=== PATIENT | male | born 1940 | race Caucasian/White ===

== ENCOUNTER 2022-06-06 13:05 | Inpatient (IN) | payer MEDICARE, OTHER ==
[~2022-06-06] VITALS: Ht 160 cm; Wt 73.0 kg
--- NOTE | 2022-06-06 13:25 | NUR ---
Nursing SBAR given to motor equipment sergeant Devika. student development coordinator is at bedside as 1:1 sitter.
[2022-06-06 13:33] LABS: HEMATOCRIT 39.3 % (36.7-47.1); MEAN CORPUSCULAR HEMOGLOBIN 29.8 uug (23.8-33.4); MEAN CORPUSCULAR VOLUME 89.5 fL (73.0-96.2); PLATELET COUNT (AUTO) 256 K/uL (152-348)
[2022-06-06 13:42] LABS: ALANINE AMINOTRANSFERASE 17 U/L (16-63); ALKALINE PHOSPHATASE 51 U/L (50-136); ASPARTATE AMINOTRANSFERASE 8 U/L (15-37); BILIRUBIN,DIRECT 0.2 mg/dL (0.0-0.2); BILIRUBIN,TOTAL 0.4 mg/dL (0.2-1.0); CARBON DIOXIDE 21 mmol/L (21-32); CHLORIDE 108 mmol/L (98-107); GLUCOSE 98 mg/dL (74-106); POTASSIUM 3.6 mmol/L (3.5-5.1); TOTAL PROTEIN, SERUM 7.6 g/dL (6.4-8.2); UREA NITROGEN, BLOOD 20 mg/dL (7-18)
[2022-06-06 13:43] LABS: ACETAMINOPHEN < 2.0 ug/mL (10-30)
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
[2022-06-06] MEDS ORDERED: HYDR-501 PO (13:46)
[2022-06-06] MEDS ORDERED: OMEP40CA21 PO (13:46)
[2022-06-06] MEDS ORDERED: LACT10SO7 PO (13:46)
[2022-06-06] MEDS ORDERED: BISM-146 PO (13:48)
[2022-06-06] MEDS ORDERED: ACET-2154 PO (13:48)
[2022-06-06] MEDS ORDERED: ACET500C4 PO (13:48)
[2022-06-06] MEDS ORDERED: CHOL50006 PO (13:50)
[2022-06-06] MEDS ORDERED: ASCO500C18 PO (13:50)
[2022-06-06] MEDS ORDERED: THIA100T13 PO (13:50)
[2022-06-06] MEDS ORDERED: TAMS-3 PO (13:51)
[2022-06-06] MEDS ORDERED: AMLO10TA4 PO (13:51)
[2022-06-06] MEDS ORDERED: MULT1CAP34 PO (13:51)
[2022-06-06] MEDS ORDERED: ATOR10TA PO (13:53)
[2022-06-06] MEDS ORDERED: LORA-114 PO (13:53)
[2022-06-06] MEDS ORDERED: DEXT15DR23 TOP (13:53)
[2022-06-06] MEDS ORDERED: MAG-55 PO (13:57)
[2022-06-06] MEDS ORDERED: DIVA125T2 PO (13:57)
[2022-06-06] MEDS ORDERED: DIVA250T4 PO (13:57)
[2022-06-06] MEDS ORDERED: SIME125C81 PO (13:57)
[2022-06-06] MEDS ORDERED: BISA10SU61 RC (14:01)
[2022-06-06] MEDS ORDERED: MAGN400O6 PO (14:01)
[2022-06-06] MEDS ORDERED: NA P133E (14:01)
[2022-06-06 14:38] LABS: ETHANOL < 3 MG/DL (0-0)
--- NOTE | 2022-06-06 15:00 | NUR ---
REMAINS 1:1 WITH SITTER AND NO DISTRESS NOTED.
--- NOTE | 2022-06-06 16:45 | NUR ---
UNABLE TO PROVIDE URINE FOR LAB SPECIMEN,STRAIGHT CATH USING 14 FR CATH, 100 ML CLEAR YELLOW URINE AND NO RESISTANCE MET.LANCE PROCEDURE WELL.
--- NOTE | 2022-06-06 17:00 | NUR ---
VSS,NO DISTRESS NOTED.
--- NOTE | 2022-06-06 18:38 | NUR ---
APPETITE POOR ATE ONLY 20% OF DINNER AND SLEEPING, RESP EVEN AND UNLABOR. REPORTS DIARRHEA BUT HAS NOT VOIDED OR HAVE BM SINCE ARRIVAL TO ED.
--- NOTE | 2022-06-06 18:43 | NUR ---
CRSIS PODIATRIC SURGEON OLIVIA IN TO EVAL PATIENT AT 1824 AND PATIENT WILL BE PLACED ON 5150 FOR THIS ADMISSION.
[2022-06-06] MEDS: AMLODIPINE 10 MG TABLET PO SCH (18:45)
--- NOTE | 2022-06-06 20:48 | NUR ---
ASSUMED CARE, PT found resting in bed, alert and oriented, able to answer questions appropriately. per report pt was sent from his SNF for increasing aggitation and visual hallucanations. pt is stating he see blood, when no blood is present. also noted to occsaionaly try to strike staff or other pts. since assuming care pts mentation has been calm and coopreative. room assigned, report given. pt transported in stable condition with all paperwork and belongings, to include original hold. pt updated as to plan of care, understanding verbalised. NAD noted
[2022-06-06] MEDS ORDERED: LORAZEPAM 1 MG TABLET PO PRN (21:15)
[2022-06-06] MEDS ORDERED: MAGNESIUM HYDROXIDE 30 ML LIQUID UDC PO PRN (21:15)
[2022-06-06] MEDS ORDERED: MAG HYDROX/AL HYDROX/SIMETH 30 ML LIQUID UDC PO PRN (21:15)
[2022-06-06] MEDS: ATORVASTATIN 10 MG TABLET PO SCH (21:56)
[2022-06-06] MEDS: ZOLPIDEM 5 MG TABLET PO PRN (21:56)
[2022-06-06] MEDS ORDERED: Medication Not On Formulary EA (Simethicone 125 MG) PO SCH (22:00)
--- NOTE | 2022-06-06 22:00 | NUR ---
GPS ADMISSION NOTES: Admitted 82 y/o male patient, under the care of Dr. Fowler and Dr. Dillard, status: full code. Patient inpatient to MHU d/t progressive decline, worsening agitation, aggressive behavior, and being very difficult to redirect so was placed on 72H hold by the crisis team. Patient was brought in via gurney by ER nurse, patient appears to be well nourished. Upon face to face evaluation, patient is A&Ox2, poorly dressed, patient is Qatari speaking and only understands minimal Korean so needs lending manager to converse. Initial vital signs taken and w/in normal. No distress noted. Patient is cooperative with interview process with pleasant behavior, however refused to sign needed admission paper. Patient was asked as the reason to be here, patient states in Qatari and translated by one of the staff as "I am here to get surgery because I am pooping blood". Patient is ambulatory with the aid of walker, but he states he comes with a wheelchair. Patient oriented to the unit, and verbalized understanding. Patient requested shower and was provided to patient. Patient skin appears intact. Patient rights explained to patient, patient rights handbook and advisement given at bedside. Patient given Prn ambien. He is assisted to his room, safety measures in place.
[2022-06-06] MEDS: SIMETHICONE 80 MG TAB.CHEW PO SCH (22:33)
[2022-06-06 22:45] VITALS: BP 135/61
[2022-06-07] MEDS: SIMETHICONE 80 MG TAB.CHEW PO SCH ×3 (06:09→21:29)
[2022-06-07] MEDS: PANTOPRAZOLE SODIUM 40 MG TABLET.DR PO SCH (06:12)
[2022-06-07] MEDS ORDERED: Medication Not On Formulary EA (Omeprazole 40 MG) PO SCH (09:00)
[2022-06-07] MEDS ORDERED: CHOLECALCIFEROL PO SCH (09:00)
[2022-06-07] MEDS ORDERED: [UNRECOGNIZED DRUG - OTHER] PO SCH (09:00)
[2022-06-07] MEDS ORDERED: Medication Not On Formulary EA (Ascorbic Acid (Vitamin C) 500 MG) PO SCH (09:00)
[2022-06-07] MEDS ORDERED: MULTIVITAMINS PO SCH (09:00)
[2022-06-07] MEDS: CHOLECALCIFEROL 1,000 UNIT TABLET PO SCH (09:44)
[2022-06-07] MEDS: LACTULOSE 20 G/30 ML LIQUID UDC PO SCH ×3 (09:44→17:00)
[2022-06-07] MEDS: THIAMINE HCL 100 MG TABLET PO SCH (09:44)
[2022-06-07] MEDS: ASCORBIC ACID 500 MG TABLET PO SCH (09:44)
[2022-06-07] MEDS: MULTIVITAMINS,THERAPEUTIC TABLET PO SCH (09:44)
[2022-06-07] MEDS: LORATADINE 10 MG TABLET PO SCH (09:44)
[2022-06-07] MEDS: AMLODIPINE 10 MG TABLET PO SCH (09:45)
[2022-06-07] MEDS: TAMSULOSIN HCL 0.4 MG CAP.SR.24H PO SCH (09:45)
[2022-06-07 16:09] VITALS: BP 112/60
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
[2022-06-07 19:41] VITALS: BP 115/62
[2022-06-07] MEDS: ATORVASTATIN 10 MG TABLET PO SCH (20:28)
--- NOTE | 2022-06-07 20:30 | NUR ---
RECEIVED PATIENT IN HIS ROOM IN BED. HE IS NOTED AWAKE A/O X 2. IN NO DISTRESS. HE IS ABLE TO VERBALIZED HIS FEELINGS. PATIENT IS NOTED WITH POOR INSIGHT AND JUDGMENT INTO HIS ADMISSION TO MHU. HE STATED, "I AM HERE BECAUSE THAT LADY DOES NOT LIKE ME. I THOUGH I WAS GONG TO SEE THE DOCTOR FOR MY ARM BUT SHE SENT ME TO THE [facility]. I DON'T KNOW WHY I AM HERE". PATIENT WAS REASSURED AND REDIRECTED. IT WAS ALSO OBSERVED THAT PATIENT IS HYPERRELIGIOUS. HE STATED, "THE SON OF GOD IS COMING SOON. DO YOU BELIEVED IN GOD? THE JUAN OF GOD IS WITH US". HIS V/S ARE STABLE. HE WAS GIVEN PO FLUIDS AND SNACKS. SAFETY AND FALL PRECAUTIONS ARE IN PLACE. PATIENT IS REASSURE FOR HIS SAFETY. WILL CONTINUE TO MONITOR.
[2022-06-07] MEDS: ACETAMINOPHEN 325 MG TABLET PO PRN (20:50)
[2022-06-07] MEDS: ZOLPIDEM 5 MG TABLET PO PRN (23:07)
[2022-06-08] MEDS: SIMETHICONE 80 MG TAB.CHEW PO SCH ×3 (06:30→21:06)
[2022-06-08] MEDS: PANTOPRAZOLE SODIUM 40 MG TABLET.DR PO SCH (06:30)
[2022-06-08 07:26] LABS: CARBON DIOXIDE 24 mmol/L (21-32); CHLORIDE 108 mmol/L (98-107); CREATININE 1.8 mg/dL (0.6-1.3); GLUCOSE 101 mg/dL (74-106); POTASSIUM 3.7 mmol/L (3.5-5.1); UREA NITROGEN, BLOOD 24 mg/dL (7-18)
[2022-06-08 07:58] VITALS: BP 120/56
[2022-06-08] MEDS: CHOLECALCIFEROL 1,000 UNIT TABLET PO SCH (08:39)
[2022-06-08] MEDS: LACTULOSE 20 G/30 ML LIQUID UDC PO SCH ×3 (08:39→16:46)
[2022-06-08] MEDS: TAMSULOSIN HCL 0.4 MG CAP.SR.24H PO SCH (08:39)
[2022-06-08] MEDS: THIAMINE HCL 100 MG TABLET PO SCH (08:39)
[2022-06-08] MEDS: ASCORBIC ACID 500 MG TABLET PO SCH (08:39)
[2022-06-08] MEDS: AMLODIPINE 10 MG TABLET PO SCH (08:45)
[2022-06-08] MEDS: MULTIVITAMINS,THERAPEUTIC TABLET PO SCH (08:45)
[2022-06-08] MEDS: LORATADINE 10 MG TABLET PO SCH (08:45)
--- NOTE | 2022-06-08 15:58 | NUR ---
GPS: Nursing Notes: Destructive Behavior To Others: Patient is awake and responding to his name, isolative in his room, refusing to participate in therapeutic groups, gets easily irritable when redirected, believes that he is here because the staff at the SNF was against him, stated "She never like me.. She is constantly getting me agitated..", forgetful at times, redirected during shift, unable to formulate a viable plan for self care, continue to monitor for safety, continue with treatment plan.
[2022-06-08 16:05] VITALS: BP 120/58
[2022-06-08 19:47] VITALS: BP 118/56
[2022-06-08] MEDS: risperiDONE 1 MG TABLET PO SCH (20:51)
[2022-06-08] MEDS: ATORVASTATIN 10 MG TABLET PO SCH (20:51)
[2022-06-08] MEDS: ACETAMINOPHEN 325 MG TABLET PO PRN (20:58)
[2022-06-08] MEDS ORDERED: risperiDONE 1 MG TABLET PO SCH (21:00)
[2022-06-08] MEDS ORDERED: IV NS 1000 ML 1,000 ML IV ONE (22:00)
--- NOTE | 2022-06-08 23:00 | NUR ---
NEW ORDER PER DR. ROSARIO TO ADMINISTER 1000ML NS IV FLUIDS AT 125ML/HR ONE TIME ONLY D/T CREATININE 1.8 PATIENT NOTED SLEEPING, ATTEMPTED TO INFORMED THE PATIENT OF THE NEW ORDER AND INSERTION OF IV CATHETER; HOWEVER, HE STARED, "NO, NO, I AM SLEEPING, NO, I DON'T WANT IT, LATER, LATER". WILL ATTEMPT AGAIN WHEN PATIENT IS NOTED AWAKE AND ABLE TO COOPERATE. WILL CONTINUE TO MONITOR.
--- NOTE | 2022-06-09 02:10 | NUR ---
PERIPHERAL IV WAS INSERTED ON PATIENT'S RIGHT HAND WITH A 22G. 9% NORMAL SALINE IS INFUSING PER MD ORDERED, PATIENT TOLERATED WELL. WILL CONTINUE TO MONITOR.
[2022-06-09] MEDS: SIMETHICONE 80 MG TAB.CHEW PO SCH ×3 (06:25→21:11)
[2022-06-09] MEDS: PANTOPRAZOLE SODIUM 40 MG TABLET.DR PO SCH (06:25)
[2022-06-09 07:46] VITALS: BP 103/53
[2022-06-09] MEDS: LACTULOSE 20 G/30 ML LIQUID UDC PO SCH ×3 (08:38→17:00)
[2022-06-09] MEDS: risperiDONE 1 MG TABLET PO SCH ×2 (08:39→20:40)
[2022-06-09] MEDS: MULTIVITAMINS,THERAPEUTIC TABLET PO SCH (08:39)
[2022-06-09] MEDS: ASCORBIC ACID 500 MG TABLET PO SCH (08:39)
[2022-06-09] MEDS: TAMSULOSIN HCL 0.4 MG CAP.SR.24H PO SCH (08:39)
[2022-06-09] MEDS: LORATADINE 10 MG TABLET PO SCH (08:39)
[2022-06-09] MEDS: THIAMINE HCL 100 MG TABLET PO SCH (08:39)
[2022-06-09] MEDS: CHOLECALCIFEROL 1,000 UNIT TABLET PO SCH (08:39)
--- NOTE | 2022-06-09 15:32 | NUR ---
GPS: Nursing Notes: 5250 Hearing Request: Staff gave copy of 5250 to patient. Explained 5250 and informed patient that a certification review hearing will held within four days. Patient was inform that patient's right advocate will talk to her to provide assistance in preparing for the hearing or to answer questions or to provide other assistance. The court has been notified of this certification on this day via [facility] portal.
--- NOTE | 2022-06-09 15:56 | NUR ---
GPS: Nursing Notes: Destructive Behavior To Others: Patient is awake and responding to his name, disoriented, forgetful at times, gets easily irritable when redirected, gets angry when remember the staff at the SNF, stated, "She hates me... She is always against me... I am here because I was vomiting..", redirected and reoriented during shift, isolative and withdrawn in his room, labile, unpredictable behavior, poor anger management, unable to formulate a viable plan for self care, continue with treatment plan.
--- NOTE | 2022-06-09 16:12 | NUR ---
QI Initial Discharge Note: Pt currently resides at [facility] located at [address] [place] [address] ([phone]). Per Leah/IMANI, she would like the pt to return to the facility. QI will contact the SNF to ensure pt's safe return back. QI will continue to work with pt, family, and MD to ensure a safe and proper discharge plan.
[2022-06-09 16:42] VITALS: BP 134/62
[2022-06-09 20:05] VITALS: BP 126/70
[2022-06-09] MEDS: ATORVASTATIN 10 MG TABLET PO SCH (20:39)
--- NOTE | 2022-06-10 06:08 | NUR ---
Slept intermittently. Able to make needs known. Able to get up with assistance and with walker. Denies SI or HI. Pt is forgetful at times but able to be redirected. Safety maintained throughout the night, will endorse to day shift.
[2022-06-10] MEDS: SIMETHICONE 80 MG TAB.CHEW PO SCH ×3 (06:26→22:11)
[2022-06-10] MEDS: PANTOPRAZOLE SODIUM 40 MG TABLET.DR PO SCH (06:26)
[2022-06-10 07:30] VITALS: BP 139/64
[2022-06-10] MEDS: THIAMINE HCL 100 MG TABLET PO SCH (08:28)
[2022-06-10] MEDS: CHOLECALCIFEROL 1,000 UNIT TABLET PO SCH (08:29)
[2022-06-10] MEDS: LACTULOSE 20 G/30 ML LIQUID UDC PO SCH ×3 (08:30→17:26)
[2022-06-10] MEDS: MULTIVITAMINS,THERAPEUTIC TABLET PO SCH (08:30)
[2022-06-10] MEDS: risperiDONE 1 MG TABLET PO SCH ×2 (08:31→20:49)
[2022-06-10] MEDS: LORATADINE 10 MG TABLET PO SCH (08:31)
--- NOTE | 2022-06-10 09:00 | NUR ---
Received patient in her room in bed. he is noted awake A/O x 2. he is calm cooperative and pleasant upon approached. patient needs assistance with ADLs. he is able to make his needs known. He is reassured for his safety. safety and fall precaution are in place. will continue to monitor.
[2022-06-10] MEDS: ASCORBIC ACID 500 MG TABLET PO SCH (09:06)
[2022-06-10] MEDS: TAMSULOSIN HCL 0.4 MG CAP.SR.24H PO SCH (09:06)
--- NOTE | 2022-06-10 15:33 | NUR ---
Patient is isolative, withdrawn, quiet, cooperative with nursing care, depressed, compliant with medications. Emotional support provided. Fall and safety precautions implemented.
[2022-06-10 16:00] VITALS: BP 122/66
[2022-06-10 19:55] VITALS: BP 135/83
[2022-06-10] MEDS: ATORVASTATIN 10 MG TABLET PO SCH (20:49)
[2022-06-10] MEDS ORDERED: IV NS 1000 ML 1,000 ML IV ONE (22:45)
--- NOTE | 2022-06-10 23:11 | NUR ---
GPS NOTES: Received order from MD Freeman to give IV BOLUS to patient d/t increase creatinine. Patient however refused to have peripheral line inserted, patient states " No, No it's too much dolor, I want to sleep" Explained to patient as this was doctors order, patient states " I just had it two days ago, No no, too much dolor" Explained risks and benefits to patient x3, still refused.
[2022-06-11] MEDS: ACETAMINOPHEN 325 MG TABLET PO PRN ×2 (03:06→18:59)
[2022-06-11] MEDS: SIMETHICONE 80 MG TAB.CHEW PO SCH ×3 (05:54→21:48)
[2022-06-11] MEDS ORDERED: IV NS 1000 ML 1,000 ML IV ONE (06:00)
[2022-06-11] MEDS: PANTOPRAZOLE SODIUM 40 MG TABLET.DR PO SCH (06:09)
--- NOTE | 2022-06-11 06:42 | NUR ---
Patient agrees to have peripheral IV line inserted, successfully inserted in the Right AC area. Hang IV NS as per doctors order.
[2022-06-11 07:30] VITALS: BP 151/75
[2022-06-11] MEDS: risperiDONE 1 MG TABLET PO SCH (08:13)
[2022-06-11] MEDS: ASCORBIC ACID 500 MG TABLET PO SCH (08:13)
[2022-06-11] MEDS: MULTIVITAMINS,THERAPEUTIC TABLET PO SCH (08:13)
[2022-06-11] MEDS: CHOLECALCIFEROL 1,000 UNIT TABLET PO SCH (08:13)
[2022-06-11] MEDS: TAMSULOSIN HCL 0.4 MG CAP.SR.24H PO SCH (08:13)
[2022-06-11] MEDS: LORATADINE 10 MG TABLET PO SCH (08:13)
[2022-06-11] MEDS: LACTULOSE 20 G/30 ML LIQUID UDC PO SCH ×3 (08:13→17:31)
[2022-06-11] MEDS: THIAMINE HCL 100 MG TABLET PO SCH (08:14)
[2022-06-11] MEDS: ENSURE CLEAR 240 ML LIQUID (MIX BERRY) PO SCH (12:05)
[2022-06-11 16:00] VITALS: BP 159/76
[2022-06-11 20:12] VITALS: BP 144/74
[2022-06-11] MEDS: ATORVASTATIN 10 MG TABLET PO SCH (20:23)
[2022-06-11] MEDS ORDERED: risperiDONE 1 MG TABLET PO SCH (21:00)
[2022-06-12] MEDS: PANTOPRAZOLE SODIUM 40 MG TABLET.DR PO SCH (06:07)
[2022-06-12] MEDS: ACETAMINOPHEN 325 MG TABLET PO PRN (06:07)
[2022-06-12] MEDS: SIMETHICONE 80 MG TAB.CHEW PO SCH ×3 (06:07→21:15)
[2022-06-12 07:30] VITALS: BP 136/78
[2022-06-12] MEDS: MULTIVITAMINS,THERAPEUTIC TABLET PO SCH (08:46)
[2022-06-12] MEDS: ASCORBIC ACID 500 MG TABLET PO SCH (08:46)
[2022-06-12] MEDS: LACTULOSE 20 G/30 ML LIQUID UDC PO SCH ×3 (08:46→17:00)
[2022-06-12] MEDS: CHOLECALCIFEROL 1,000 UNIT TABLET PO SCH (08:46)
[2022-06-12] MEDS: LORATADINE 10 MG TABLET PO SCH (08:46)
[2022-06-12] MEDS: TAMSULOSIN HCL 0.4 MG CAP.SR.24H PO SCH (08:46)
[2022-06-12] MEDS: THIAMINE HCL 100 MG TABLET PO SCH (08:46)
[2022-06-12] MEDS: ENSURE CLEAR 240 ML LIQUID (MIX BERRY) PO SCH (08:47)
--- NOTE | 2022-06-12 13:55 | NUR ---
QI PC Hearing: Patient had 5250 probable cause hearing today and it was upheld for grave disability.
[2022-06-12 16:00] VITALS: BP 132/80
--- NOTE | 2022-06-12 17:02 | NUR ---
3rd call to doctor Davenport for pain medication. patient states that tylenol is not enough for pain. patient has been in bed all day and has been refusing PT or even repositioning in bed. Encouraged and informed patient of effect on skin and continues to refuse turning or repositioning.
[2022-06-12] MEDS: IBUPROFEN 600 MG TABLET PO PRN ×2 (18:14→20:27)
[2022-06-12] MEDS: ATORVASTATIN 10 MG TABLET PO SCH (20:12)
[2022-06-12 22:45] VITALS: BP 133/57
[2022-06-12 23:00] VITALS: BP 133/87
[2022-06-13] MEDS: ACETAMINOPHEN 325 MG TABLET PO PRN (00:04)
--- NOTE | 2022-06-13 04:52 | NUR ---
GPS NOTES: Patient continue to be c/o body pain phoebe. in the leg area. He refused to moved or do anything d/t pain. He was given motrin w/ effectivity. patient able to transfer self from bed to wheelchair and watched tv. Patient is med compliant. He was assisted back to his room. Tylenol given for pain. Needs met and attended. He is kept safe. Fall precaution observed.
[2022-06-13] MEDS: IBUPROFEN 600 MG TABLET PO PRN ×2 (06:01→21:05)
[2022-06-13] MEDS: SIMETHICONE 80 MG TAB.CHEW PO SCH ×3 (06:02→21:05)
[2022-06-13] MEDS: PANTOPRAZOLE SODIUM 40 MG TABLET.DR PO SCH (06:02)
[2022-06-13 07:30] VITALS: BP 108/62
[2022-06-13] MEDS: LACTULOSE 20 G/30 ML LIQUID UDC PO SCH ×4 (09:00→17:00)
--- NOTE | 2022-06-13 09:00 | NUR ---
Calm and compliant with taking of medication but refused Lactulose due to large loose BM yesterday. Able to eat independently. Stayed in bed.
[2022-06-13] MEDS: TAMSULOSIN HCL 0.4 MG CAP.SR.24H PO SCH (09:09)
[2022-06-13] MEDS: MULTIVITAMINS,THERAPEUTIC TABLET PO SCH (09:09)
[2022-06-13] MEDS: LORATADINE 10 MG TABLET PO SCH (09:09)
[2022-06-13] MEDS: THIAMINE HCL 100 MG TABLET PO SCH (09:09)
[2022-06-13] MEDS: CHOLECALCIFEROL 1,000 UNIT TABLET PO SCH (09:10)
[2022-06-13] MEDS: ENSURE CLEAR 240 ML LIQUID (MIX BERRY) PO SCH (09:10)
[2022-06-13] MEDS: ASCORBIC ACID 500 MG TABLET PO SCH (09:10)
--- NOTE | 2022-06-13 14:54 | NUR ---
Eating well. Denies pain but moaning when turned. Requested to be transferred to the wheelchair to go to activity room to watch TV.
[2022-06-13 16:00] VITALS: BP 114/58
--- NOTE | 2022-06-13 16:48 | NUR ---
DIANNA spoke with Dr. Fowler regarding psychotropic medication but no new orders received.
--- NOTE | 2022-06-13 18:13 | NUR ---
Stayed sitting on the wheelchair eatng in the dining area. Denies pain
[2022-06-13 20:00] VITALS: BP 119/64
[2022-06-13] MEDS: ATORVASTATIN 10 MG TABLET PO SCH (20:54)
[2022-06-14] MEDS: PANTOPRAZOLE SODIUM 40 MG TABLET.DR PO SCH (06:10)
[2022-06-14] MEDS: SIMETHICONE 80 MG TAB.CHEW PO SCH ×3 (06:10→21:09)
[2022-06-14 07:22] VITALS: BP 118/58
[2022-06-14] MEDS: ASCORBIC ACID 500 MG TABLET PO SCH (08:09)
[2022-06-14] MEDS: CHOLECALCIFEROL 1,000 UNIT TABLET PO SCH (08:09)
[2022-06-14] MEDS: ENSURE CLEAR 240 ML LIQUID (MIX BERRY) PO SCH (08:09)
[2022-06-14] MEDS: TAMSULOSIN HCL 0.4 MG CAP.SR.24H PO SCH (08:09)
[2022-06-14] MEDS: IBUPROFEN 600 MG TABLET PO PRN ×2 (08:09→20:12)
[2022-06-14] MEDS: MULTIVITAMINS,THERAPEUTIC TABLET PO SCH (08:10)
[2022-06-14] MEDS: THIAMINE HCL 100 MG TABLET PO SCH (08:10)
[2022-06-14] MEDS: LACTULOSE 20 G/30 ML LIQUID UDC PO SCH ×3 (08:10→17:17)
[2022-06-14] MEDS: LORATADINE 10 MG TABLET PO SCH (08:10)
[2022-06-14 16:17] VITALS: BP 115/69
[2022-06-14 19:45] VITALS: BP 126/60
[2022-06-14] MEDS: ATORVASTATIN 10 MG TABLET PO SCH (20:12)
--- NOTE | 2022-06-15 05:15 | NUR ---
GPS: Remains asleep at this time. Resp.even and unlabored. No aggressive behavior noted. Denies AH/VH when asked last night. Repositioned for comfort. Pain meds.administered prn with good results.
[2022-06-15] MEDS: PANTOPRAZOLE SODIUM 40 MG TABLET.DR PO SCH (06:20)
[2022-06-15] MEDS: SIMETHICONE 80 MG TAB.CHEW PO SCH ×3 (06:20→21:38)
[2022-06-15 07:54] VITALS: BP 124/54
[2022-06-15] MEDS: ENSURE CLEAR 240 ML LIQUID (MIX BERRY) PO SCH (08:00)
[2022-06-15] MEDS: LACTULOSE 20 G/30 ML LIQUID UDC PO SCH ×3 (09:22→17:00)
[2022-06-15] MEDS: THIAMINE HCL 100 MG TABLET PO SCH (09:23)
[2022-06-15] MEDS: TAMSULOSIN HCL 0.4 MG CAP.SR.24H PO SCH (09:23)
[2022-06-15] MEDS: ASCORBIC ACID 500 MG TABLET PO SCH (09:23)
[2022-06-15] MEDS: CHOLECALCIFEROL 1,000 UNIT TABLET PO SCH (09:23)
[2022-06-15] MEDS: MULTIVITAMINS,THERAPEUTIC TABLET PO SCH (09:23)
[2022-06-15] MEDS: LORATADINE 10 MG TABLET PO SCH (09:23)
[2022-06-15] MEDS: IBUPROFEN 600 MG TABLET PO PRN ×2 (10:01→20:46)
[2022-06-15 16:07] VITALS: BP 124/60
--- NOTE | 2022-06-15 17:31 | NUR ---
GPS: Nursing Notes: Destructive Behavior To Others: Patient is awake and responding to her name, impaired judgment, complaining of not sleeping last night, but slept 7 hours and 45 minutes last night, believes that the staff from his facility hate him because the staff is always changing him to different rooms, "She always put me with a screaming person during the night and I cannot sleep..", unable to formulate a viable plan for self care, continue to monitor for safety, continue with treatment plan.
[2022-06-15 19:59] VITALS: BP 125/67
[2022-06-15] MEDS: ATORVASTATIN 10 MG TABLET PO SCH (20:41)
[2022-06-15] MEDS: MIRTAZAPINE 15 MG TABLET PO SCH (20:41)
[2022-06-15 20:42] VITALS: BP 123/66
[2022-06-16] MEDS: SIMETHICONE 80 MG TAB.CHEW PO SCH ×3 (05:42→21:50)
--- NOTE | 2022-06-16 06:03 | NUR ---
GPS: Remain calm and cooperative with meds and care.Patient is awake and responding to his name, impaired judgment, complaining of pain motrin x1 given for pain. patient is unable to formulate a viable plan for self care, continue to monitor for safety, continue with treatment plan.
[2022-06-16] MEDS: PANTOPRAZOLE SODIUM 40 MG TABLET.DR PO SCH (06:09)
--- NOTE | 2022-06-16 06:38 | NUR ---
slept 7.15 hrs through the night.
[2022-06-16 08:02] VITALS: BP 135/62
[2022-06-16] MEDS: LACTULOSE 20 G/30 ML LIQUID UDC PO SCH ×3 (09:00→17:00)
[2022-06-16] MEDS: CHOLECALCIFEROL 1,000 UNIT TABLET PO SCH (09:08)
[2022-06-16] MEDS: MULTIVITAMINS,THERAPEUTIC TABLET PO SCH (09:09)
[2022-06-16] MEDS: LORATADINE 10 MG TABLET PO SCH (09:09)
[2022-06-16] MEDS: ASCORBIC ACID 500 MG TABLET PO SCH (09:09)
[2022-06-16] MEDS: TAMSULOSIN HCL 0.4 MG CAP.SR.24H PO SCH (09:09)
[2022-06-16] MEDS: THIAMINE HCL 100 MG TABLET PO SCH (09:09)
[2022-06-16] MEDS: ENSURE CLEAR 240 ML LIQUID (MIX BERRY) PO SCH (09:10)
[2022-06-16] MEDS: IBUPROFEN 600 MG TABLET PO PRN ×2 (12:26→22:13)
[2022-06-16 15:06] VITALS: BP 109/53
--- NOTE | 2022-06-16 17:55 | NUR ---
GPS: Nursing Notes: Destructive Behavior To Others: Patient is awake and responding to his name, gets easily irritable when redirected, impaired judgment, needs assistance with ADL's, showered today, cooperative with nursing care, believes that he is getting better, continue stating that the staff at the facility is against him, "I cannot sleep well over there because the staff put me with screamers and they don't allow me to sleep...", "She hates me...", unable to formulate a viable plan for self care, continue to monitor for safety, continue with treatment plan.
[2022-06-16] MEDS: ATORVASTATIN 10 MG TABLET PO SCH (20:01)
[2022-06-16] MEDS: MIRTAZAPINE 15 MG TABLET PO SCH (20:01)
[2022-06-16 20:09] VITALS: BP 136/60
[2022-06-16] MEDS: ZOLPIDEM 5 MG TABLET PO PRN (22:13)
[2022-06-17] MEDS: PANTOPRAZOLE SODIUM 40 MG TABLET.DR PO SCH (06:14)
[2022-06-17] MEDS: SIMETHICONE 80 MG TAB.CHEW PO SCH ×3 (06:14→21:16)
--- NOTE | 2022-06-17 06:47 | NUR ---
GPS: Pt.slept 7.30 last night. Less anxious and depressed. Able to make needs known to staff. Med.compliant. Denies SI/AH/VH. Fall precautions observed. Meds.given for pain/arthritic pain and effective. Will continue to monitor. No loose stools reported S/T Lactulose use.
[2022-06-17 07:30] VITALS: BP 120/68
[2022-06-17] MEDS: LACTULOSE 20 G/30 ML LIQUID UDC PO SCH ×4 (09:00→17:00)
[2022-06-17] MEDS: ENSURE CLEAR 240 ML LIQUID (MIX BERRY) PO SCH (09:20)
[2022-06-17] MEDS: LORATADINE 10 MG TABLET PO SCH (09:22)
[2022-06-17] MEDS: TAMSULOSIN HCL 0.4 MG CAP.SR.24H PO SCH (09:22)
[2022-06-17] MEDS: ASCORBIC ACID 500 MG TABLET PO SCH (09:22)
[2022-06-17] MEDS: CHOLECALCIFEROL 1,000 UNIT TABLET PO SCH (09:22)
[2022-06-17] MEDS: THIAMINE HCL 100 MG TABLET PO SCH (09:22)
[2022-06-17] MEDS: MULTIVITAMINS,THERAPEUTIC TABLET PO SCH (09:22)
[2022-06-17] MEDS: IBUPROFEN 600 MG TABLET PO PRN ×2 (11:29→21:10)
[2022-06-17 16:00] VITALS: BP 112/52
[2022-06-17 20:00] VITALS: BP 122/55
[2022-06-17] MEDS: ATORVASTATIN 10 MG TABLET PO SCH (20:30)
[2022-06-17] MEDS: MIRTAZAPINE 15 MG TABLET PO SCH (20:30)
--- NOTE | 2022-06-17 21:23 | NUR ---
Received patient in wheelchair calm and cooperative.All due meds given without difficulty. Needs attended. Complained of being constipated and generalized pain "says my bones killing me" Motrin 600mg given as needed and MOM given as well. Will monitor for any behavioral issues. In good spirits.
[2022-06-18] MEDS: SIMETHICONE 80 MG TAB.CHEW PO SCH ×3 (05:33→21:40)
[2022-06-18] MEDS: PANTOPRAZOLE SODIUM 40 MG TABLET.DR PO SCH (06:12)
[2022-06-18 07:54] VITALS: BP 101/63
[2022-06-18] MEDS: CHOLECALCIFEROL 1,000 UNIT TABLET PO SCH (08:06)
[2022-06-18] MEDS: THIAMINE HCL 100 MG TABLET PO SCH (08:06)
[2022-06-18] MEDS: TAMSULOSIN HCL 0.4 MG CAP.SR.24H PO SCH (08:06)
[2022-06-18] MEDS: MULTIVITAMINS,THERAPEUTIC TABLET PO SCH (08:06)
[2022-06-18] MEDS: LORATADINE 10 MG TABLET PO SCH (08:06)
[2022-06-18] MEDS: ASCORBIC ACID 500 MG TABLET PO SCH (08:06)
[2022-06-18] MEDS: LACTULOSE 20 G/30 ML LIQUID UDC PO SCH ×3 (08:07→16:36)
[2022-06-18 08:50] LABS: ALANINE AMINOTRANSFERASE 27 U/L (16-63); ALKALINE PHOSPHATASE 56 U/L (50-136); ASPARTATE AMINOTRANSFERASE 8 U/L (15-37); BILIRUBIN,TOTAL 0.4 mg/dL (0.2-1.0); CARBON DIOXIDE 21 mmol/L (21-32); CHLORIDE 110 mmol/L (98-107); CREATININE 1.9 mg/dL (0.6-1.3); GLUCOSE 101 mg/dL (74-106); POTASSIUM 3.7 mmol/L (3.5-5.1); TOTAL PROTEIN, SERUM 7.2 g/dL (6.4-8.2); UREA NITROGEN, BLOOD 29 mg/dL (7-18)
[2022-06-18] MEDS: ENSURE CLEAR 240 ML LIQUID (MIX BERRY) PO SCH (09:35)
[2022-06-18] MEDS: IBUPROFEN 600 MG TABLET PO PRN ×2 (14:58→20:40)
--- NOTE | 2022-06-18 15:05 | NUR ---
Patient is withdrawn and isolated. Patient refuses to go to group activitiy and stays lying in bed. No complaints of pain nor s/s of distress, nor resp distress. Communicates accordingly when spoke to. Takes meds. Took lactulose at breakfast, lunch, and dinner. Had successful BM; soft, formed, and brown.
[2022-06-18 16:26] VITALS: BP 129/69
[2022-06-18 20:14] VITALS: BP 135/71
[2022-06-18] MEDS: ZOLPIDEM 5 MG TABLET PO PRN (20:40)
[2022-06-18] MEDS: MIRTAZAPINE 15 MG TABLET PO SCH (20:40)
[2022-06-18] MEDS: ATORVASTATIN 10 MG TABLET PO SCH (20:40)
--- NOTE | 2022-06-19 03:33 | NUR ---
GPS NOTES: Received in w/c at the dining area, watching tv. He is A&Ox3, able to make needs known. He has been c/o pain in his legs. Prn Motrin given. Remains compliant with medications. He is compliant with nursing care. Slept well during shift. No distress noted. He is kept safe at all times.
[2022-06-19] MEDS: SIMETHICONE 80 MG TAB.CHEW PO SCH ×3 (05:43→21:30)
[2022-06-19] MEDS: IBUPROFEN 600 MG TABLET PO PRN ×3 (05:55→20:22)
[2022-06-19] MEDS: PANTOPRAZOLE SODIUM 40 MG TABLET.DR PO SCH (06:08)
[2022-06-19 07:30] VITALS: BP 142/62
[2022-06-19] MEDS: ENSURE CLEAR 240 ML LIQUID (MIX BERRY) PO SCH (08:00)
[2022-06-19] MEDS: MULTIVITAMINS,THERAPEUTIC TABLET PO SCH (09:29)
[2022-06-19] MEDS: THIAMINE HCL 100 MG TABLET PO SCH (09:29)
[2022-06-19] MEDS: CHOLECALCIFEROL 1,000 UNIT TABLET PO SCH (09:29)
[2022-06-19] MEDS: ASCORBIC ACID 500 MG TABLET PO SCH (09:30)
[2022-06-19] MEDS: LORATADINE 10 MG TABLET PO SCH (09:30)
[2022-06-19] MEDS: LACTULOSE 20 G/30 ML LIQUID UDC PO SCH ×3 (09:30→17:31)
[2022-06-19] MEDS: TAMSULOSIN HCL 0.4 MG CAP.SR.24H PO SCH (09:30)
[2022-06-19] MEDS: ACETAMINOPHEN 325 MG TABLET PO PRN (09:40)
--- NOTE | 2022-06-19 16:15 | NUR ---
QI Family Contact: SW contacted pt's niece, Leah [phone] and left a voicemail regarding pt's return to [facility] [phone] on Wednesday at 11AM confirmed by the facility.
[2022-06-19 16:33] VITALS: BP 134/54
[2022-06-19 19:42] VITALS: BP 119/66
[2022-06-19] MEDS: MIRTAZAPINE 15 MG TABLET PO SCH (20:22)
[2022-06-19] MEDS: ZOLPIDEM 5 MG TABLET PO PRN (20:23)
[2022-06-19] MEDS: ATORVASTATIN 10 MG TABLET PO SCH (20:23)
--- NOTE | 2022-06-20 05:26 | NUR ---
GPS NOTES: Remains compliant with medications and treatment plans. Stayed in bed during shift sleeping well. Prn Motrin given d/t pain. Patient tolerated well. Needs met and attended. Safety measures applied.
[2022-06-20] MEDS: SIMETHICONE 80 MG TAB.CHEW PO SCH ×3 (06:10→21:59)
[2022-06-20] MEDS: PANTOPRAZOLE SODIUM 40 MG TABLET.DR PO SCH (06:10)
[2022-06-20] MEDS: LACTULOSE 20 G/30 ML LIQUID UDC PO SCH ×3 (09:15→17:28)
[2022-06-20] MEDS: LORATADINE 10 MG TABLET PO SCH (09:20)
[2022-06-20] MEDS: ENSURE CLEAR 240 ML LIQUID (MIX BERRY) PO SCH (09:20)
[2022-06-20] MEDS: TAMSULOSIN HCL 0.4 MG CAP.SR.24H PO SCH (09:20)
[2022-06-20] MEDS: MULTIVITAMINS,THERAPEUTIC TABLET PO SCH (09:21)
[2022-06-20] MEDS: ASCORBIC ACID 500 MG TABLET PO SCH (09:21)
[2022-06-20] MEDS: THIAMINE HCL 100 MG TABLET PO SCH (09:21)
[2022-06-20] MEDS: CHOLECALCIFEROL 1,000 UNIT TABLET PO SCH (09:22)
[2022-06-20 09:32] VITALS: BP 124/82
[2022-06-20 12:08] LABS: HEMATOCRIT 36.9 % (36.7-47.1); MEAN CORPUSCULAR HEMOGLOBIN 30.3 uug (23.8-33.4); PLATELET COUNT (AUTO) 303 K/uL (152-348)
[2022-06-20 12:18] LABS: ALANINE AMINOTRANSFERASE 24 U/L (16-63); ALKALINE PHOSPHATASE 61 U/L (50-136); ASPARTATE AMINOTRANSFERASE < 5 U/L (15-37); BILIRUBIN,TOTAL 0.4 mg/dL (0.2-1.0); CARBON DIOXIDE 19 mmol/L (21-32); CHLORIDE 110 mmol/L (98-107); CREATININE 1.9 mg/dL (0.6-1.3); GLUCOSE 113 mg/dL (74-106); POTASSIUM 3.6 mmol/L (3.5-5.1); TOTAL PROTEIN, SERUM 7.5 g/dL (6.4-8.2); UREA NITROGEN, BLOOD 20 mg/dL (7-18)
[2022-06-20] MEDS: IBUPROFEN 600 MG TABLET PO PRN ×2 (17:27→20:41)
[2022-06-20 18:57] VITALS: BP 127/61
[2022-06-20 20:10] VITALS: BP 122/64
[2022-06-20] MEDS: ATORVASTATIN 10 MG TABLET PO SCH (20:40)
[2022-06-20] MEDS: ZOLPIDEM 5 MG TABLET PO PRN (20:40)
[2022-06-20] MEDS: MIRTAZAPINE 15 MG TABLET PO SCH (20:41)
[2022-06-20 21:16] LABS: *BILIRUBIN,URIN NEGATIVE (NEGATIVE); *BLOOD, URINE 1+ (NEGATIVE); *CLARITY,URINE CLEAR (CLEAR); *COLOR,URINE YELLOW (YELLOW); *KETONES,URINE NEGATIVE (NEGATIVE); *UROBILINOGEN,URINE 0.2 E.U./dl (NORMAL); LEUKOCYTE ESTERASE ,URINE NEGATIVE (NEGATIVE); NITRITE, URINE POSITIVE (NEGATIVE); PH,URINE 5.5 (5.0-8.0); UGLUCOSE NEGATIVE (NEGATIVE)
[2022-06-20 21:34] LABS: BACTERIA,URINE MODERATE /HPF (NONE SEEN); SQUAMOUS EPITHELIAL CELL,UR FEW /HPF (NONE SEEN); WBC,URINE 0-3 /HPF (0-3)
[2022-06-20 21:35] LABS: URINE AMORPHOUS URATE FEW /HPF
[2022-06-21] MEDS: SIMETHICONE 80 MG TAB.CHEW PO SCH ×3 (06:02→21:08)
[2022-06-21] MEDS: PANTOPRAZOLE SODIUM 40 MG TABLET.DR PO SCH (06:03)
[2022-06-21 07:40] VITALS: BP 131/61
[2022-06-21 07:55] LABS: HEMATOCRIT 34.6 % (36.7-47.1); MEAN CORPUSCULAR HEMOGLOBIN 30.3 uug (23.8-33.4); MEAN CORPUSCULAR VOLUME 89.1 fL (73.0-96.2); PLATELET COUNT (AUTO) 276 K/uL (152-348)
[2022-06-21] MEDS: THIAMINE HCL 100 MG TABLET PO SCH (08:14)
[2022-06-21] MEDS: ASCORBIC ACID 500 MG TABLET PO SCH (08:14)
[2022-06-21] MEDS: TAMSULOSIN HCL 0.4 MG CAP.SR.24H PO SCH (08:14)
[2022-06-21] MEDS: MULTIVITAMINS,THERAPEUTIC TABLET PO SCH (08:14)
[2022-06-21] MEDS: CHOLECALCIFEROL 1,000 UNIT TABLET PO SCH (08:14)
[2022-06-21] MEDS: LACTULOSE 20 G/30 ML LIQUID UDC PO SCH ×3 (08:15→16:12)
[2022-06-21] MEDS: ENSURE CLEAR 240 ML LIQUID (MIX BERRY) PO SCH (08:15)
[2022-06-21] MEDS: LORATADINE 10 MG TABLET PO SCH (08:16)
[2022-06-21 08:28] LABS: CARBON DIOXIDE 19 mmol/L (21-32); CHLORIDE 111 mmol/L (98-107); CREATININE 2.2 mg/dL (0.6-1.3); GLUCOSE 101 mg/dL (74-106); MAGNESIUM 1.9 mg/dL (1.8-2.4); PHOSPHOROUS 5.2 mg/dL (2.5-4.9); POTASSIUM 3.6 mmol/L (3.5-5.1); UREA NITROGEN, BLOOD 25 mg/dL (7-18)
--- NOTE | 2022-06-21 16:07 | NUR ---
Received patient AAO x1 to his name only ,had been compliant with his routine am meds. Encouraged to participate in his group therapy , up to rabia-chair assisted with all ADLS.Covid test done ,will continue close monitoring.
[2022-06-21 16:10] VITALS: BP 118/64
[2022-06-21] MEDS: CEphaleXIN 250 MG CAPSULE PO SCH (17:34)
[2022-06-21] MEDS: IBUPROFEN 600 MG TABLET PO PRN (17:40)
[2022-06-21 19:53] VITALS: BP 118/54
[2022-06-21] MEDS: ATORVASTATIN 10 MG TABLET PO SCH (20:14)
[2022-06-21] MEDS: MIRTAZAPINE 15 MG TABLET PO SCH (20:14)
--- NOTE | 2022-06-21 20:30 | NUR ---
RECEIVED PATIENT IN HIS ROOM IN BED. HE IS NOTED AWAKE A/O 2 HE IS CALM AND PLEASANT UPON APPROACHED. PATIENT ABLE TO VERBALIZED HIS FEELINGS. HE IS AWARE AND AGREEABLE WITH HIS IMPENDING DISCHARGED FOR TOMORROW MORNING. PATIENT NOTED GOAL ORIENTED. HE STATED, "I AM HAPPY I AM GOING BACK TO MY FACILITY BECAUSE THERE I HAVE MY RADIO WHERE A CAN LISTEN TO THE [place] AND I ALSO HAVE MY TV WHERE I CAN WATCH THE NEWS AND CURRENT EVENTS". PATIENT DENIED SI/HI/VH/AH HE IS ABLE TO VERBALLY CFS. HE IS REASSURED FOR HIS SAFETY. SAFETY AND FALL PRECAUTIONS ARE IN PLACE. HIS V/S ARE STABLE. PT IN NO DISTRESS. PO FLUIDS ANS SNACKS WERE PROVIDED. WILL CONTINUE TO MONITOR.
[2022-06-21] MEDS ORDERED: IV NS 1000 ML 1,000 ML IV ONE (22:00)
--- NOTE | 2022-06-21 23:55 | NUR ---
New order obtained form Dr. Freeman to administer IV fluids NS one time order at 100ml/hr. order noted. IV insertion was placed in his left antecubital vain. Patient tolerated well. will continue to monitor.
[2022-06-22] MEDS: PANTOPRAZOLE SODIUM 40 MG TABLET.DR PO SCH (06:49)
[2022-06-22] MEDS: SIMETHICONE 80 MG TAB.CHEW PO SCH ×3 (06:49→21:29)
[2022-06-22 07:40] VITALS: BP 112/55
[2022-06-22 08:28] LABS: CARBON DIOXIDE 21 mmol/L (21-32); CHLORIDE 112 mmol/L (98-107); CREATININE 1.9 mg/dL (0.6-1.3); GLUCOSE 100 mg/dL (74-106); POTASSIUM 3.7 mmol/L (3.5-5.1); UREA NITROGEN, BLOOD 26 mg/dL (7-18)
[2022-06-22] MEDS: ASCORBIC ACID 500 MG TABLET PO SCH (08:52)
[2022-06-22] MEDS: MULTIVITAMINS,THERAPEUTIC TABLET PO SCH (08:52)
[2022-06-22] MEDS: CHOLECALCIFEROL 1,000 UNIT TABLET PO SCH (08:52)
[2022-06-22] MEDS: TAMSULOSIN HCL 0.4 MG CAP.SR.24H PO SCH (08:52)
[2022-06-22] MEDS: THIAMINE HCL 100 MG TABLET PO SCH (08:52)
[2022-06-22] MEDS: LORATADINE 10 MG TABLET PO SCH (08:53)
[2022-06-22] MEDS: LACTULOSE 20 G/30 ML LIQUID UDC PO SCH ×3 (08:53→16:36)
[2022-06-22] MEDS: ENSURE CLEAR 240 ML LIQUID (MIX BERRY) PO SCH (08:53)
[2022-06-22] MEDS: CEphaleXIN 250 MG CAPSULE PO SCH ×2 (08:55→16:36)
[2022-06-22] MEDS: IBUPROFEN 600 MG TABLET PO PRN (09:01)
--- NOTE | 2022-06-22 09:50 | NUR ---
spoke with Dr. Freeman for BNP result , with new order repeat 1 L of NS ivf.
[2022-06-22] MEDS ORDERED: IV NS 1000 ML 1,000 ML IV ONE ×2 (10:00→15:30)
[2022-06-22 16:10] VITALS: BP 117/98
[2022-06-22 19:59] VITALS: BP 126/50
[2022-06-22] MEDS: ATORVASTATIN 10 MG TABLET PO SCH (20:18)
[2022-06-22] MEDS: MIRTAZAPINE 15 MG TABLET PO SCH (20:18)
[2022-06-23] MEDS: SIMETHICONE 80 MG TAB.CHEW PO SCH (06:13)
[2022-06-23] MEDS: PANTOPRAZOLE SODIUM 40 MG TABLET.DR PO SCH (06:13)
[2022-06-23] MEDS: LORATADINE 10 MG TABLET PO SCH (08:40)
[2022-06-23] MEDS: TAMSULOSIN HCL 0.4 MG CAP.SR.24H PO SCH (08:40)
[2022-06-23] MEDS: CEphaleXIN 250 MG CAPSULE PO SCH (08:40)
[2022-06-23] MEDS: CHOLECALCIFEROL 1,000 UNIT TABLET PO SCH (08:40)
[2022-06-23] MEDS: LACTULOSE 20 G/30 ML LIQUID UDC PO SCH (08:40)
[2022-06-23] MEDS: ENSURE CLEAR 240 ML LIQUID (MIX BERRY) PO SCH (08:40)
[2022-06-23] MEDS: THIAMINE HCL 100 MG TABLET PO SCH (08:40)
[2022-06-23] MEDS: ASCORBIC ACID 500 MG TABLET PO SCH (08:40)
[2022-06-23] MEDS: MULTIVITAMINS,THERAPEUTIC TABLET PO SCH (08:40)
[2022-06-23 08:47] VITALS: BP 136/54
--- NOTE | 2022-06-23 09:31 | NUR ---
QI Family Contact: SW contacted Pts jah, Leah ([phone]) to inform her of pt's discharge plan today to return to [facility]. Leah is aware and agreeable with the discharge plan and very thankful for the pt's care.
--- NOTE | 2022-06-23 09:46 | NUR ---
QI Discharge Note: Pt will be discharged to [facility] ([phone]) located at [address] [place] [address] via ambulance transportation at 11AM. QI spoke with Adriana in admissions at the facility who state they are ready to accept the patient today. Pt is aware and agreeable with discharge plan. Pts Leah tyson ([phone]) is aware and agreeable with the discharge plan. Pt is alert and oriented x4, is unable to plan for self-care at this time. However, pt is willing to return for care at SNF. Pt denies any suicidal or homicidal ideation. Pt will follow-up at the facility with Psychiatrist, Dr. Portillo and Contract Programmer, Dr. Rdz. Pt presents with calm mood and congruent affect. Pharmacy: [facility] ([phone]).
--- NOTE | 2022-06-23 10:52 | NUR ---
GPS: PT ALERT AND ORIENTED X2-3, DENIES PAIN OR DISCOMFORT. PT COMPLIANT OF CARE AN MEDS. DENIES SI/HI. NO AGITATION OR AGGRESSIVE BEHAVIOR NOTED AT THIS TIME. PT WILL BE DISCHARGE TODAY TO [facility] VIA AMBULANCE TRANSPORTATION AT 11AM. Pt will follow-up at the facility with Psychiatrist, Dr. Portillo and Plant Packer, Dr. Rdz. Pt presents with calm mood and congruent affect.
--- NOTE | 2022-06-23 12:39 | NUR ---
GPS: PT DISCHARGED TO FACILITY VIA AMBULANCE TRANSPORTATION. PT DENIES PAIN OR DISCOMFORT. COMPLIANT WITH CARE AND MEDS. ALL BELONGINGS GIVEN AND PT REFUSED TO SIGN. PT ENDORSEMENT REPORT DONE AT [facility] WITH KERRY, ADMISSION NURSE.
== END 2022-06-23 12:42 | DRG 885 ==
LOC: ER 13:20 → GPS 20:55
PROVIDERS: ADMIT Psychiatry & Neurology Psychiatry; ATTEND Nurse Practitioner Acute Care
DX: F25.9 Schizoaffective disorder, unspecified (principal); F01.51 Vascular dementia, unspecified severity, with behavioral disturbance; N17.0 Acute kidney failure with tubular necrosis; N18.4 Chronic kidney disease, stage 4 (severe); N39.0 Urinary tract infection, site not specified; G93.40 Encephalopathy, unspecified; E78.5 Hyperlipidemia, unspecified; E86.0 Dehydration; N40.0 Benign prostatic hyperplasia without lower urinary tract symptoms; M19.90 Unspecified osteoarthritis, unspecified site; Z74.01 Bed confinement status; I12.9 Hypertensive chronic kidney disease with stage 1 through stage 4 chronic kidney disease, or unspecified chronic kidney disease; F29 Unspecified psychosis not due to a substance or known physiological condition; B96.20 Unspecified Escherichia coli [E. coli] as the cause of diseases classified elsewhere; Z20.822 Contact with and (suspected) exposure to COVID-19; F31.9 Bipolar disorder, unspecified
CPT/HCPCS: 36415; 76770; 83735; 84100; 85025; 87077; 87086; A4663; A6209; G0480; J7040